=== PATIENT | female | born 1960 | race Caucasian/White ===

== ENCOUNTER 2016-11-26 13:40 | Day surgery (SDC) | payer MEDICARE, OTHER ==
[~2016-11-26] VITALS: Ht 160 cm; Wt 106.3 kg
[2016-11-26] VITALS (10 sets, daily range): BP systolic 98–129; BP diastolic 46–108; PULSE 88–93; TEMP 97.8–98.3
[~2016-11-26 13:40] MED LIST: CYMBALTA 30MG30 MG PO; FLEXERIL 1010 MG/TAB PO; GLUCOPHAGE1000 MG PO; IPRATROPIUM BROM3 M1 IH; LASIX 20MG TABL20 MG PO; MS CONTIN 330 MG/TAB PO; MSIR30 MG PO; NEURONTIN300 MG/CAP PO; NEXIUM 40MG40 MG PO; SINGULAIR 110 MG/TAB PO; SLEEP AID25 M1 PO; SYNTHROID0.075 MG/T PO; ZOCOR 10MG10 MG PO; [UNRECOGNIZED DRUG - OTHER] PO; [UNRECOGNIZED DRUG - OTHER] PO
[2016-11-26] MEDS ORDERED: ZYRTEC 10MG10 MG PO (14:50)
[2016-11-26] MEDS ORDERED: NEURONTIN600 MG/TAB PO (14:56)
[2016-11-26] MEDS ORDERED: MAG-OX 400400 MG/TAB PO (14:57)
[2016-11-26] MEDS ORDERED: BENTYL 20MG20 MG/TAB PO (14:58)
[2016-11-26] MEDS ORDERED: SYNTHROID 0.10.15 MG PO (14:58)
[2016-11-26] MEDS ORDERED: DIABETA 2.5MG2.5 MG PO (14:59)
[2016-11-26] MEDS ORDERED: REGLAN 10MG10 MG/TAB PO (15:00)
[2016-11-26] MEDS ORDERED: ATROVENT I0.2 MG/1 M IH (15:00)
[2016-11-26] MEDS ORDERED: IBU400 MG PO (15:01)
[2016-11-26] MEDS ORDERED: RT ADVAIR 528 DISKUS IH (15:02)
[2016-11-26] MEDS ORDERED: FARXIGA5 PO (15:04)
== END 2016-11-26 20:30 | disposition home or self-care (01) ==
LOC: SDCO 13:40 → SURG 16:10 → SDCO 20:30
DX: R19.11 Absent bowel sounds (principal); K31.5 Obstruction of duodenum; K85.90 Acute pancreatitis without necrosis or infection, unspecified; R10.11 Right upper quadrant pain
CPT/HCPCS: OP; C1727; C1769; J2250; J2704; J3010; J7030; Q9967